=== PATIENT | female | born 1945 | race Caucasian/White ===

== ENCOUNTER 2018-02-12 13:18 | Emergency (ER) | payer OTHER ==
[~2018-02-12] VITALS: Ht 160 cm; Wt 112.0 kg
[~2018-02-12 13:18] MED LIST: ASPIRIN EC325 MG PO; CALTRATE 6001 TABLE2 PO; CELEBREX200 MG PO; CENTRUM SILV1 TABLE1 PO; CENTRUM SILVER1 EAC3 PO; ENDOCET 5-3251 EACH PO; EXCEDRIN EXTRA1 EACH PO; Ecotrin PO; Feosol PO; HYDROCHLOROTHIA25 MG PO; HYDROCODON-ACE1 EAC7 PO; IRON325 M1 PO; LO-DOSE ASPIRIN81 M1 PO; OMEGA-31000 M1 PO; Omega III EPA + DHA PO; Osteo-Biflex,Flex-A- PO; SENOKOT S,PE1 TABLET PO; SYSTANE 0.3-0.1 EACH BOTH EYES; Tenormin PO; Vicodin,Lortab 5/500 PO; ZOCOR20 MG PO; Zestoretic,Prinzide PO; Zocor PO
[2018-02-12] MEDS ORDERED: MOTRIN800 MG PO (15:19)
[2018-02-12] MEDS ORDERED: FLEXERIL10 MG PO (15:19)
[2018-02-12 15:34] VITALS: BP 155/87
== END 2018-02-12 15:35 | disposition home or self-care (01) ==
LOC: EME 13:18
DX: S46.911A Strain of unspecified muscle, fascia and tendon at shoulder and upper arm level, right arm, initial encounter (principal); X50.3XXA Overexertion from repetitive movements, initial encounter; Y93.E2 Activity, laundry
CPT/HCPCS: 73020; 73030; 99281; 99285